=== PATIENT | female | born 1990 | race Caucasian/White ===

== ENCOUNTER 2019-12-04 19:11 | Emergency (ER) | payer OTHER ==
[2019-12-04] MEDS ORDERED: OXYCODONE-ACETAMINOPHEN 5-325 MG TABLET PO ONE (19:49)
--- NOTE | 2019-12-04 20:04 | ER Document Report ---
HPI - HPI Time Seen by Provider: 12/04/19 19:45 Pain Level: 5 Notes: Otherwise healthy 29-year-old female presenting to the emergency department chief complaint of left ankle pain. Patient reports last night she was wearing boots and tripped down 1 step twisting her ankle. She states the pain has gotten worse since then. Denies any history of trauma to this area previously. - CONSTITUTIONAL Constitutional: DENIES: Fever, Chills - DERM Skin Color: Normal Past Medical History - General Information source: Patient - Social History Smoking Status: Current Every Day Smoker Frequency of alcohol use: Occasional Drug Abuse: None Family History: Reviewed & Not Pertinent Patient has suicidal ideation: No Patient has homicidal ideation: No - Medical History Medical History: Negative Surgical Hx: Negative - Immunizations Immunizations up to date: Yes Vertical Provider Document - CONSTITUTIONAL Notes: PHYSICAL EXAMINATION: GENERAL: Well-appearing, well-nourished and in no acute distress. HEAD: Atraumatic, normocephalic. EYES: Pupils equal round extraocular movements intact, conjunctiva are normal. ENT: Nares patent NECK: Normal range of motion LUNGS: No respiratory distress Musculoskeletal: Limited range of motion to left ankle, swelling noted especially to the lateral aspect, strong dorsalis pedis pulse. Cap refill less than 3 seconds. NEUROLOGICAL: Normal speech. PSYCH: Normal mood, normal affect. SKIN: Warm, Dry, normal turgor, no rashes or lesions noted. - INFECTION CONTROL TRAVEL OUTSIDE OF THE [place] IN LAST 30 DAYS: No Course - Re-evaluation Re-evalutation: Ankle X-Ray 12/04/19 19:49 IMPRESSION: No acute displaced fracture is seen. Significant soft tissue swelling. copyright 2010 [email or web address]- All Rights Reserved - Vital Signs Vital signs: Temp Pulse Resp BP Pulse Ox 98.2 F 109 H 20 135/96 H 100 12/04/19 19:34 12/04/19 19:34 12/04/19 19:34 12/04/19 19:34 12/04/19 19:34 Procedures - Immobilization left ankle Pre-Proc Neuro Vasc Exam: Normal Immobilizer type: Ankle stirrup, Crutches Performed by: PCT Post-Proc Neuro Vasc Exam: Normal Discharge - Discharge Clinical Impression: Ankle sprain Qualifiers: Encounter type: initial encounter Involved ligament of ankle: unspecified ligament Laterality: left Qualified Code(s): S93.402A - Sprain of unspecified ligament of left ankle, initial encounter Condition: Stable Disposition: HOME, SELF-CARE Instructions: Ankle Stirrup Splint ([facility]), Use of Crutches ([facility]), Ice & Elevation ([facility]), Sprained Ankle ([facility]) Additional Instructions: The x-rays were negative for any fracture or dislocation. Please follow all discharge instructions. Follow-up with your primary care provider or orthopedics once you get home. Take ibuprofen 600 mg every 6 hours. Use the narcotic pain medication for severe pain only.
--- NOTE | 2019-12-04 20:44 | RADIOLOGY REPORT (SQ) ---
EXAM DESCRIPTION: XR ANKLE 3 OR MORE VIEWS COMPLETED DATE/TME: 12/04/2019 19:49 CLINICAL HISTORY: 29 years, Female, FALL/ANKLE PAIN COMPARISON: None. NUMBER OF VIEWS: 3 TECHNIQUE: Left LIMITATIONS: None. FINDINGS: No acute displaced fracture. Alignment is anatomic. Significant soft tissue swelling. Joint spaces appear normal. IMPRESSION: No acute displaced fracture is seen. Significant soft tissue swelling. copyright 2010 [employer]- All Rights Reserved
[2019-12-04 20:52] VITALS: BP 136/90
[2019-12-04] MEDS ORDERED: HYDROCODONE/ACETAMINOPHEN 5-325 MG (6 TAB/ER DISP) PO PRN (20:55)
== END 2019-12-04 21:05 | disposition home or self-care (01) ==
LOC: ER 19:11
PROC: 2W3RX1Z Immobilization of Left Lower Leg using Splint (ICD-10-PCS; principal; 2019-12-04)
DX: S93.402A Sprain of unspecified ligament of left ankle, initial encounter (principal); M25.572 Pain in left ankle and joints of left foot; X50.1XXA Overexertion from prolonged static or awkward postures, initial encounter; F17.200 Nicotine dependence, unspecified, uncomplicated
CPT/HCPCS: 99283